=== PATIENT | female | born 1950 | race Caucasian/White ===

== ENCOUNTER 2020-03-02 11:42 | Emergency (ER) | payer OTHER, MEDICARE ==
[~2020-03-02] VITALS: Ht 154.9 cm; Wt 77.1 kg
[2020-03-02] MEDS ORDERED: ketorolac trometh. 30mg/ml inj. IV ONE (12:15)
[2020-03-02] MEDS ORDERED: ketorolac tromethamine 15mg/ml inj. IV ONE (12:25)
[2020-03-02] MEDS ORDERED: IBUP-1984 PO (13:51)
[2020-03-02 14:12] VITALS: BP 117/81
== END 2020-03-02 14:15 | disposition home or self-care (01) ==
LOC: ER 11:43
DX: S52.501A Unspecified fracture of the lower end of right radius, initial encounter for closed fracture (principal); S09.90XA Unspecified injury of head, initial encounter; I48.91 Unspecified atrial fibrillation; Z88.5 Allergy status to narcotic agent; Z79.899 Other long term (current) drug therapy; W18.30XA Fall on same level, unspecified, initial encounter; Y93.89 Activity, other specified; Y92.89 Other specified places as the place of occurrence of the external cause; Y99.8 Other external cause status
CPT/HCPCS: 29125; 70450; 73110; 96374; 99285; J1885